=== PATIENT | female | born 1965 | race Caucasian/White ===

== ENCOUNTER 2020-07-03 02:04 | Emergency (ER) | payer OTHER ==
[~2020-07-03] VITALS: Ht 165.1 cm; Wt 74.8 kg
--- NOTE | 2020-07-03 02:20 | NUR ---
MD Clark in room to do MSE.
[2020-07-03] MEDS ORDERED: HYDR-4209 PO (02:28)
[2020-07-03] MEDS ORDERED: DOCU100C58 PO (02:28)
[2020-07-03] MEDS ORDERED: IBUP800T54 PO (02:28)
[2020-07-03] MEDS ORDERED: KETOROLAC TROMETHAMINE 30 MG INJ IM ONE (02:30)
[2020-07-03] MEDS ORDERED: KETOROLAC TROMETHAMINE 30 MG INJ ONE (02:39)
--- NOTE | 2020-07-03 02:50 | NUR ---
Patient verbalizes great relief from pain, able to ambulate and change positions without difficulty.
[2020-07-03 03:00] VITALS: BP 130/96
--- NOTE | 2020-07-03 03:00 | NUR ---
Patient discharged to home in stable condition. Written and verbal after care instructions given. Patient verbalizes understanding of instructions. Stressed follow up or return to ER for worsening s/s. Patient ambulates with steady gait, received paper Rx, V/S stable, left with all personal belongings.
== END 2020-07-03 03:00 | disposition home or self-care (01) ==
LOC: ER 02:13
DX: M54.42 Lumbago with sciatica, left side (principal); R03.0 Elevated blood-pressure reading, without diagnosis of hypertension
CPT/HCPCS: 96372; 99283; J1885; A4663